=== PATIENT | female | born 1995 | race Caucasian/White ===

== ENCOUNTER 2023-11-08 17:54 | Emergency (ER) | payer SELFPAY ==
[2023-11-08 17:58] VITALS: BP 116/67
[2023-11-08 18:14] LABS: % Basophils 0.9 % (0-2); % Eosinophils 1.4 % (0-6); % Immature Granulocytes 0.2 % (0-0.5); % Lymphocytes 25.8 % (20.5-51.1); % Monocytes 6.6 % (1.7-9.3); % Neutrophils 65.1 % (42.2-75.2); Absolute Basophils 0.1 10^3/uL (0-0.2); Absolute Eosinophils 0.1 10^3/uL (0-0.7); Absolute Lymphocytes 2.2 10^3/uL (1.2-3.4); Absolute Monocytes 0.6 10^3/uL (0.1-0.6); Absolute Neutrophils 5.5 10^3/uL (1.4-6.5); Hematocrit 34.2 % (37.0-47.0); Hemoglobin 11.9 g/dL (12.0-16.0); Mean Corp Hgb Conc. 34.8 g/dL (33.0-37.0); Mean Corpuscular Hgb 29.7 pg (27.0-31.0); Mean Corpuscular Volume 85.3 fL (81.0-99.0); Nucleated Red Blood Cells % 0 %; Platelet Count 216 10^3/uL (130-400); Red Blood Cell Count 4.01 10^6/uL (4.20-5.40); Red Cell Dist. Width 13.1 % (11.5-14.5); White Blood Cell Count 8.5 10^3/uL (4.8-10.8)
[2023-11-08 18:36] LABS: ALT (SGPT) 14 U/L (0-35); AST (SGOT) 21 U/L (14-36); Albumin 4.5 g/dl (3.5-5.0); Alkaline Phosphatase 66 U/L (38-126); Blood Urea Nitrogen 12 mg/dl (7-17); Calcium 9.9 mg/dl (8.4-10.2); Carbon Dioxide 23 mmol/L (22-30); Chloride 103 mmol/L (98-107); Glucose 92 mg/dl (70-99); Potassium 4.8 mmol/L (3.5-5.1); Sodium 141 mmol/L (135-145); Total Bilirubin 0.9 mg/dl (0.2-1.3); Total Protein 7.1 g/dl (6.3-8.2); eGFR > 60.00
[2023-11-08 18:52] LABS: Beta HCG Quantitative 266.35 mIU/ml
--- NOTE | 2023-11-08 19:29 | ED.GENMED ---
History of Present Illness
General
Chief Complaint: Problems
Source: patient and family
Exam Limitations: none
Time Seen by Provider: 11/08/23 19:16
Nursing documentation reviewed up to this point in time: agreed with
History of Present Illness
History of Present Illness:
Patient to ED with complaint of heavy vaginal bleeding, feeling weak. According to family she is 12 weeks . She was seen at [facility] approx 1 mos ago for spotting. US confirmed IUP, heartbeat detected. SHe was given Rhogam because
her blood type is Oneg. 1 week ago she started to bleed again but heavier than initial. She went back to [facility], had repeat US which showed IUP without detectable heartbeat. She was told that she is most likely miscarrying and was given
'pills to take', however she did not take them. Yesterday she reports bleeding intensified and is now passing clots. Reports feeling weak, had 1 episode of syncope at home. Brought to ED by family for eval. Not eating or drinking today due to
feeling weak.
Past History
Past History
ED Past Medical History: None
ED Past Surgical History: Other (rhinoplasty)
Review of Systems
Review of Systems
Allergies reviewed?: Yes
All Other Systems: ROS reviewed and negative except as documented in HPI and ROS
Constitutional: Reports fatigue
ABD/GI: Reports no symptoms
: Reports bleeding (heavy vaginal bleeding with clots)
Musculoskeletal: Reports no symptoms
Skin: Reports no symptoms
Neurological: Reports weakness
Psychiatric: Reports no symptoms
Phy Exam
General Physical Exam
General Presentation: well appearing and mild distress
General age: appears stated age and appears older than age
General Skin: warm and dry
General Habitus: normal
General Mental: alert
Gastrointestinal Exam
Gastrointestinal Exam: non tender and soft
Genitourinary Exam Female
Exam Female: other (deferred for pelvic US)
Musculoskeletal Exam
Musculoskeletal Exam: full ROM
Skin Exam
Skin Exam: normal color, warm/dry and no rash
Psychiatric Exam
Psychiatric Exam: normal mood/affect
Course
Orders/Labs/Results
Orders:
Orders
11/08/23 18:08
Type+Screen Urgent
Complete Blood Count/With Diff Urgent
Comprehensive Metabolic Panel Urgent
HCG, Beta Quantitative [Beta HCG Quantitative] Urgent
Is this a screen?: No
11/08/23 19:17
1st Trimester US [US 1st Trimester] Urgent
Comment:
Reason For Exam: bleeding
11/08/23 19:29
0.9% Sodium Chloride 1000 ml [Nss] 1,000 ml IV BOLUS
11/08/23 19:49
ABO2 Urgent
BBK Wristband Number:
Associate notified that ABO2 has been ordered: [id number]
Date: 11/08/23
Time: 18:15
Drainage Inspector ID: [id number]
Abnormal Lab Results
11/08/23
18:08
RBC 4.01 L 10^6/uL
(4.20-5.40)
Hgb 11.9 L g/dL
(12.0-16.0)
Hct 34.2 L %
(37.0-47.0)
Antibody Screen Positive A
(Negative)
11/08/23 18:08
11/08/23 18:08
Vital Signs
Initial and Last Documented VS:
Initial Vital Signs
Temp Pulse Resp BP Pulse Ox
98.0 F 85 16 116/67 98
11/08/23 17:58 11/08/23 17:58 11/08/23 17:58 11/08/23 17:58 11/08/23 17:58
Last Documented Vital Signs
Temp Pulse Resp BP Pulse Ox
98.0 F 79 14 101/62 99
11/08/23 17:58 11/08/23 22:00 11/08/23 22:00 11/08/23 21:00 11/08/23 21:45
Information
Weeks gestation: N/A
Location: N/A
*Radiology
Radiology exam reviewed: radiology read reviewed
*Pulse Oximetry
Patient hypoxic: no
*Critical Care Note
Total Time (30-74mins, 75-104mins- exclusive of procedures): Not Applicable
Update Note
Update Note:
Discussed lab and US findings with patient and family. No evidence of sac on US. SHe received Rhogam on Sunday, no need to repeat. SHe will be discharged home and will need to follow up with OB for repeat HCG. Given instrutions on s/s to return
to ED and she is agreeable to plan.
ED Attending Note
-
Portions of this chart may have been created with voice recognition software.� Occasional wrong word or��sound alike� substitutions may have occurred due to the inherent limitations of voice recognition software.
Discharge Plan
Departure
Patient Disposition: Home (Routine Discharge)
Date of Disposition: 11/08/23
Time of Disposition: 22:23
Patient with high blood pressure during this ER visit?: No
Condition: Good
Covid-19: Not Applicable
Discharge Problem:
Complete miscarriage
Instructions: Miscarriage (DC)
Referrals:
[facility] [Outside]
Cheyenne Salmon MD [Active] - Call in 1-3 days for appt
NONE,* [Family Provider] -
Activity Restrictions/Additional Instructions:
As we discussed, you will need to follow up with insurance follow up specialist on Sunday for repeat HCG levels.
Interventions
Interventions:
*Risk Screen - Suicide Last Done: 11/08/23 19:49
*General Assessment Last Done: 11/08/23 19:49
*Neglect/Abuse Screening Last Done: 11/08/23 19:49
*ED COVID-19 Vaccine History Last Done: 11/08/23 19:49
*Nursing Disposition Last Done: 11/08/23 22:44
ED-Female Genitourinary Assessment Last Done: 11/08/23 19:49
Discharge Date and Time
Print Language: DIVEHI
[2023-11-08 19:42] VITALS: BP 109/63
[2023-11-08 19:49] VITALS: BP 109/63; BMI 20.6
[2023-11-08] MEDS: NSS 1000 IV (19:53)
[2023-11-08 21:00] VITALS: BP 101/62
== END 2023-11-08 22:44 | disposition home or self-care (01) ==
LOC: EMR 17:54
PROVIDERS: EMERGENCY PHYSICIAN Emergency Medicine
DX: O03.9 Complete or unspecified spontaneous abortion without complication (principal)
CPT/HCPCS: 99284; 96360; 76801; 80053; 84702; 85025; 86850; 86870; 86900; 86901